=== PATIENT | female | born 1980 | race African-American/Black ===

== ENCOUNTER 2017-07-05 14:56 | Emergency (ER) | payer OTHER ==
[~2017-07-05] VITALS: Ht 162.6 cm; Wt 65.9 kg
[2017-07-05] MEDS ORDERED: ACETAMINOPHEN/CODEINE 300-30 MG TABLET PO ONE (16:15)
[2017-07-05 17:30] LABS: APPEARANCE,URINE CLOUDY (CLEAR); GLUCOSE, URINE (UA) NEGATIVE (NEGATIVE); KETONES,URINE NEGATIVE (NEGATIVE); NITRATE,URINE NEGATIVE (NEGATIVE); OCCULT BLOOD,URINE TRACE (NEGATIVE); PROTEIN,URINE TRACE (NEGATIVE)
[2017-07-05 17:40] LABS: BACTERIA,URINE Many /HPF (None Seen); BILIRUBIN,URINE PRELIM. POSITIVE (NEGATIVE); LEUKOCYTE ESTERASE ,URINE TRACE (NEGATIVE); RBC,URINE 0-2 /HPF (0-2); SQUAMOUS EPITHELIAL CELL,UR Few /LPF (None Seen); WBC,URINE 0-2 /HPF (0-5)
[2017-07-05 17:46] LABS: INFLUENZA TYPE A NEGATIVE FOR TYPE A (NEGATIVE); INFLUENZA TYPE B NEGATIVE FOR TYPE B (NEGATIVE)
[2017-07-05 18:07] VITALS: BP 133/76
== END 2017-07-05 18:15 | disposition home or self-care (01) ==
LOC: EMS 14:56
DX: J06.9 Acute upper respiratory infection, unspecified (principal); J45.909 Unspecified asthma, uncomplicated; R51 Headache; F17.210 Nicotine dependence, cigarettes, uncomplicated
CPT/HCPCS: 71046; 87086; 87804; 99285; 99406

== ENCOUNTER 2023-12-07 12:56 | Inpatient (IN) | payer SELFPAY ==
[~2023-12-07] VITALS: Ht 167.6 cm; Wt 99.1 kg
[2023-12-07] MEDS ORDERED: SODIUM CHLORIDE 0.9% 100 ML ONE (13:33)
[2023-12-07] MEDS ORDERED: 0.9% SODIUM CHLORIDE 10 ML SYRINGE IVP ONE (13:33)
[2023-12-07] MEDS ORDERED: IOHEXOL 350 MG/ML 100 ML VIAL ONE (13:33)
[2023-12-07 13:50] LABS: BASOPHILS % (AUTO) 1.1 % (0.0-2.0); EOSINOPHILS % (AUTO) 2.7 % (1.0-6.0); HEMATOCRIT 35.6 % (36-46); HEMOGLOBIN 11.3 g/dL (12.0-16.0); LYMPHOCYTES # (AUTO) 2.6 K/uL (1.0-4.8); LYMPHOCYTES % (AUTO) 34.5 % (22.0-44.0); MEAN CORPUSCULAR HEMOGLOBIN 25.5 pg (26.0-34.0); MEAN CORPUSCULAR HGB CONC 31.8 G/dL (31.0-37.0); MEAN CORPUSCULAR VOLUME 80 fL (80-100); MONOCYTES # (AUTO) 0.6 K/uL (0.1-1.0); MONOCYTES % (AUTO) 7.3 % (2.0-9.0); NEUTROPHILS # (AUTO) 4.1 K/uL (1.8-7.7); NEUTROPHILS % (AUTO) 54.4 % (40.0-70.0); PLATELET COUNT (AUTO) 345 K/uL (150-450); RED BLOOD CELL COUNT(AUTO) 4.43 MIL/uL (4.00-5.20); RED CELL DISTRIBUTION WIDTH 18.6 % (11.5-14.5); WHITE BLOOD COUNT (AUTO) 7.6 K/uL (4.5-11.0)
[2023-12-07 14:02] LABS: PROTHROMBIN TIME 10.2 SEC (9.4-11.6)
[2023-12-07 14:04] LABS: ANION GAP 5 mmol/L (8-16); CALCIUM, TOTAL 8.1 mg/dL (8.8-10.5); CARBON DIOXIDE 27 mmol/L (22-29); CHLORIDE 101 mmol/L (98-107); CREATININE 0.92 mg/dL (0.60-1.30); GLOMERULAR FILTR. RATE CALC > 60 mL/min (>60); GLUCOSE,RANDOM 87 mg/dL (70-110); POTASSIUM 3.9 mmol/L (3.5-5.1); SODIUM SERUM 133 mmol/L (136-145); UREA NITROGEN, BLOOD 10 mg/dL (7-18)
[2023-12-07 14:08] LABS: TROPONIN I-HIGH SENSITIVITY Less Than 4 ng/L (<51)
[2023-12-07] MEDS: ASPIRIN 81 MG CHEWABLE TABLET PO ONE (14:08)
[2023-12-07] MEDS: CLOPIDOGREL BISULFATE 75 MG TABLET PO ONE (14:08)
[2023-12-07] MEDS: KETOROLAC TROMETHAMINE 30 MG/ML VIAL IVP ONE (14:09)
[2023-12-07 14:10] LABS: ALBUMIN 2.7 g/dL (3.4-5.0); ALKALINE PHOSPHATASE 47 U/L (46-116); ASPARTATE AMINOTRANSFERASE 247 U/L (15-37); BILIRUBIN,TOTAL 0.3 mg/dL (0.1-1.0); TOTAL PROTEIN, SERUM 7.1 g/dL (6.4-8.2)
[2023-12-07 14:47] LABS: ALANINE AMINOTRANSFERASE 10 U/L (12-78)
[2023-12-07 14:53] LABS: APPEARANCE,URINE CLEAR (CLEAR); BILIRUBIN,URINE NEGATIVE (NEGATIVE); COLOR,URINE COLORLESS (YELLOW); GLUCOSE, URINE (UA) NEGATIVE (NEGATIVE); KETONES,URINE NEGATIVE (NEGATIVE); LEUKOCYTE ESTERASE ,URINE NEGATIVE (NEGATIVE); NITRATE,URINE POSITIVE (NEGATIVE); OCCULT BLOOD,URINE MODERATE (NEGATIVE); PROTEIN,URINE TRACE mg/dL (NEGATIVE); UROBILINOGEN,URINE <=1.0 mg/dL (<=1.0)
[2023-12-07 15:00] LABS: ALCOHOL, URINE DRUG SCREEN NEGATIVE (NEGATIVE); AMPHET/METH SCREEN,URINE POSITIVE (NEGATIVE); BARBITURATE SCREEN, URINE NEGATIVE (NEGATIVE); BENZODIAZEPINES SCREEN,URINE NEGATIVE (NEGATIVE); CANNABINOID SCREEN,URINE POSITIVE (NEGATIVE); COCAINE SCREEN,URINE NEGATIVE (NEGATIVE); METHADONE SCREEN, URINE NEGATIVE (NEGATIVE); OPIATE SCREEN,URINE NEGATIVE (NEGATIVE); PHENCYCLIDINE SCREEN,URINE NEGATIVE (NEGATIVE)
[2023-12-07 15:13] LABS: BACTERIA,URINE Few /HPF (None Seen); RBC,URINE 0-2 /HPF (0-2); SQUAMOUS EPITHELIAL CELL,UR Rare /LPF (None Seen); WBC,URINE None Seen /HPF (0-5)
[2023-12-07] MEDS: HEPARIN SODIUM,PORCINE 5,000 UNITS/ML VIAL SQ SCH (16:00)
[2023-12-07] MEDS ORDERED: MORPHINE SULFATE 2 MG/ML SYRINGE IVP PRN (16:00)
[2023-12-07] MEDS ORDERED: ONDANSETRON HCL 4 MG/2 ML VIAL IVP PRN (16:00)
[2023-12-07] MEDS ORDERED: ZOLPIDEM TARTRATE 5 MG TABLET PO PRN (16:00)
[2023-12-07] MEDS ORDERED: IPRATROPIUM BROMIDE 0.5 MG/2.5 ML NEB SOLUTION NEB PRN (16:00)
[2023-12-07] MEDS ORDERED: ALBUTEROL SULFATE 2.5 MG/0.5 ML NEB SOLUTION NEB PRN (16:00)
[2023-12-07] MEDS ORDERED: MAGNESIUM HYDROXIDE SUSPENSION 30 ML UDCUP PO PRN (16:00)
[2023-12-07] MEDS ORDERED: ACETAMINOPHEN 325 MG TABLET PO PRN (16:00)
[2023-12-07 19:05] VITALS: BP 148/111; PULSE 78; RESP 18; TEMP 98; O2SAT 92
[2023-12-07 20:33] LABS: TROPONIN I-HIGH SENSITIVITY Less Than 4 ng/L (<51)
[2023-12-07 20:37] VITALS: BP 130/70; PULSE 66; RESP 16; TEMP 98.1; O2SAT 100
[2023-12-07] MEDS: DOCUSATE SODIUM 100 MG CAPSULE PO SCH (21:00)
[2023-12-08 00:07] VITALS: BP 108/68; PULSE 68; RESP 16; TEMP 97.8; O2SAT 100
[2023-12-08 01:49] LABS: TROPONIN I-HIGH SENSITIVITY 4 ng/L (<51)
[2023-12-08 05:46] VITALS: BP 123/85; PULSE 73; RESP 18; TEMP 98.2; O2SAT 100
[2023-12-08] MEDS: OxyCODONE HCL/ACETAMINOPHEN 5-325 MG TABLET PO PRN (05:56)
[2023-12-08] MEDS: PANTOPRAZOLE SODIUM 40 MG DR TABLET PO SCH (07:57)
[2023-12-08 08:09] VITALS: BP 130/79; PULSE 76; RESP 18; TEMP 98.2; O2SAT 98
[2023-12-08 11:41] VITALS: BP 119/73; PULSE 74; RESP 18; TEMP 98.2; O2SAT 98
== END 2023-12-08 13:35 | disposition home or self-care (01) | DRG 69 ==
LOC: EMS 12:56 → EDH 16:02 → 5N 19:02
PROVIDERS: ADMIT Hospitalist; ATTEND Hospitalist
DX: G45.9 Transient cerebral ischemic attack, unspecified (principal); F19.10 Other psychoactive substance abuse, uncomplicated; J45.909 Unspecified asthma, uncomplicated; F17.210 Nicotine dependence, cigarettes, uncomplicated; G43.809 Other migraine, not intractable, without status migrainosus; Z86.73 Personal history of transient ischemic attack (TIA), and cerebral infarction without residual deficits
CPT/HCPCS: 70496; 70498; 70551; 71045; 80053; 80061; 80307; 81001; 82948; 84484; 84703; 85025; 85610; 85730; 92610; 93005; 99285; J1644; J1885; J7050; 36415-L1; 36415-TC; 70450; 70450-TC

== ENCOUNTER 2023-12-30 15:32 | Emergency (ER) | payer MEDICAID ==
[~2023-12-30] VITALS: Ht 154.9 cm; Wt 100.0 kg
[2023-12-30 15:35] VITALS: BP 125/82; PULSE 75; RESP 18; TEMP 98.3; O2SAT 100
== END 2023-12-30 16:01 | disposition left against medical advice (07) ==
LOC: EMS 15:32
DX: R51.9 Headache, unspecified (principal); Z53.21 Procedure and treatment not carried out due to patient leaving prior to being seen by health care provider